=== PATIENT | male | born 1940 | race Caucasian/White ===

== ENCOUNTER 2019-11-04 16:01 | Emergency (ER) | payer MEDICARE, BC ==
--- NOTE | 2019-11-04 16:06 | ERPHSYRPT ---
- History of Present Illness Source: patient, EMS Exam Limitations: no limitations Timing/Duration: today Activities at Onset: none Severity of Dyspnea-Max: moderate Severity of Dyspnea-Current: moderate Possible Cause: occasional episodes Modifying Factors: Improves With: activity, exertion Associated Symptoms: No chest pain/discomfort, No hemoptysis, No calf pain, No lightheadedness, No painful breathing, No productive cough <SLY DURAN - Last Filed: 11/04/19 19:01> <LENORE MORAN - Last Filed: 11/04/19 21:05> - History of Present Illness Time Seen by Provider: 11/04/19 16:06 Physician History: This is a 78-year-old white male has a history of type 2 diabetes, hypertension , coronary artery disease, and COPD. Patient underwent a left knee surgery in [place]. This was performed 4 days ago. Patient and his family contacted EMS service because of complaints of exertional shortness of air. Patient denies chest pain. Patient has low oxygen saturation in the 80 to 81% on room air. Patient is only been on aspirin. He has not been on any anticoagulation therapy per his report. He is blood pressure in route was 129 over 60s with heart rate in the 90s. His respiratory rate was between 20 and 24. On 4 L of oxygen nasal cannula his patient is 96%. 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 and it is Dr. House (SLY DURAN) Allergies/Adverse Reactions: No Known Drug Allergies Allergy (Unverified 11/04/19 16:12) Home Medications: Albuterol 17 gm IH QID PRN 11/04/19 [History] Aspirin 325 mg PO DAILY 11/04/19 [History] Docusate Sodium [Colace] 100 mg PO BID 11/04/19 [History] Hydrocodone Bit/Acetaminophen [[place] 10-325 Tablet] 1 - 2 tab PO Q4H PRN [History] Lisinopril 10 mg [Zestril 10 MG] 5 mg PO EVENING MEAL 11/04/19 [History] Lisinopril 10 mg [Zestril 10 MG] 10 mg PO DAILY 11/04/19 [History] Metformin HCl 500 mg [Glucophage 500 MG] 1,000 mg PO BIDWM 11/04/19 [ History] Metoprolol Tartrate 25 mg [Lopressor 25MG Tab] 25 mg PO BID 11/04/19 [ History] Nitroglycerin 0.4 mg Tablet [Nitrostat 0.4 MG Tablet] 0.4 mg SL Q5MIN PRN MR X 3 PRN 11/04/19 [History] Ondansetron ODT 4 MG [Zofran Odt 4 mg] 4 mg PO Q6H PRN 11/04/19 [History] Simvastatin 20Mg [Zocor 20Mg] 40 mg PO QPM 11/04/19 [History] Travel Risk - International Travel Have you traveled outside of the country in past 3 weeks: No - Coronavirus Screening Are you exhibiting any of the following symptoms?: Yes Symptoms: Shortness of Breath Close contact with a COVID-19 positive Pt in past 14-21 Days: No <SLY DURAN - Last Filed: 11/04/19 19:01> - Review of Systems Constitutional: No Symptoms Eyes: No Symptoms Ears, Nose, & Throat: No Symptoms Respiratory: Dyspnea on Exertion (ABREU) Cardiac: No Symptoms Abdominal/Gastrointestinal: No Symptoms Genitourinary Symptoms: No Symptoms Musculoskeletal: No Symptoms Skin: No Symptoms Neurological: No Symptoms Psychological: No Symptoms Endocrine: No Symptoms Hematologic/Lymphatic: No Symptoms Immunological/Allergic: No Symptoms All Other Systems: Reviewed and Negative <SLY DURAN - Last Filed: 11/04/19 19:01> - Past Medical History Neurological History: No Pertinent History ENT History: No Pertinent History Cardiac History: Coronary Artery Disease, High Cholesterol, Hypertension Respiratory History: COPD Endocrine Medical History: Diabetes Type II Musculoskeletal History: Arthritis, Osteoarthritis GI Medical History: No Pertinent History History: No Pertinent History Psycho-Social History: No Pertinent History Male Reproductive Disorders: No Pertinent History Other Medical History: Lumbar fusion in 1998 - Past Surgical History Past Surgical History: Yes Neuro Surgical History: No Pertinent History Cardiac: No Pertinent History Respiratory: No Pertinent History Gastrointestinal: No Pertinent History Genitourinary: No Pertinent History Musculoskeletal: No Pertinent History Male Surgical History: No Pertinent History - Social History Exposure to second hand smoke: No Patient Lives Alone: No <SLY DURAN - Last Filed: 11/04/19 19:01> - Physical Exam General Appearance: no apparent distress, alert, anxiety, obese Eye Exam: PERRL/EOMI, eyes nml inspection Ears, Nose, Throat Exam: hearing grossly normal, normal ENT inspection, normal pharynx Neck Exam: normal inspection, non-tender, supple, full range of motion Respiratory Exam: normal breath sounds <SLY DURAN - Last Filed: 11/04/19 19:01> - Physical Exam Respiratory Exam: normal breath sounds, lungs clear Cardiovascular/Chest Exam: normal heart sounds, regular rate/rhythm Abdominal/Gastrointestinal Exam: soft, No tenderness, No distention Rectal Exam: deferred Extremity Exam: non-tender, normal range of motion, normal inspection Peripheral Pulses Exam: carotid (R): 2+, carotid (L): 2+, femoral (R): 2+, femoral (L): 2+, dorsalis-pedis (R): 2+, dorsalis-pedis (L): 2+ Neurologic Exam: alert, oriented x 3, cooperative, 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 tested, normal mood/affect Skin Exam: normal color SpO2 Interpretation: hypoxic <LENORE MORAN - Last Filed: 11/04/19 21:05> - Nursing Vital Signs Nursing Vital Signs: Initial Vital Signs Temperature 98.6 F 11/04/19 16:01 Pulse Rate 89 11/04/19 16:01 Respiratory Rate 16 11/04/19 16:01 Blood Pressure 117/63 11/04/19 16:01 O2 Sat by Pulse Oximetry 78 L 11/04/19 16:01 Pain Scale Pain Intensity 0 - Course Nursing assessment & vital signs reviewed: Yes EKG Interpreted by Me: Sinus Rhythm, Non-specific ST Changes, Other (IVCD) - CT Exams Chest CT Interpretation: Tele-radiologist Report, No PE, Other (atelectasi) <LENORE MORAN - Last Filed: 11/04/19 21:05> Ordered Tests: Active Orders 24 hr Category Date Time Status [place] STAT Care 11/04/19 16:07 Active EKG-ER Only STAT Care 11/04/19 16:07 Active EKG-ER Only STAT Care 11/04/19 17:27 Active IV Insertion STAT Care 11/04/19 16:07 Active Pulse Oximetry (ED) STAT Care 11/04/19 16:07 Active CHEST 1 VIEW (PORTABLE) Stat Exams 11/04/19 16:07 Completed CHEST WITH CONTRAST [CT] Stat Exams 11/04/19 18:45 Completed BMP Stat Lab 11/04/19 18:57 Completed CBC W DIFF Stat Lab 11/04/19 16:07 Completed CMP Stat Lab 11/04/19 16:10 Completed D-DIMER QUANTITATIVE Stat Lab 11/04/19 16:10 Completed NT PRO BNP Stat Lab 11/04/19 16:10 Completed PROTIME WITH INR Stat Lab 11/04/19 16:10 Completed TROPONIN Q3H Lab 11/04/19 16:10 Completed TROPONIN Q3H Lab 11/04/19 18:57 Completed TROPONIN Q3H Lab 11/04/19 22:15 Ordered TROPONIN Q3H Lab 11/05/19 01:15 Ordered TROPONIN Q3H Lab 11/05/19 04:15 Ordered Medication Summary Discontinued Medications Generic Name Dose Route Start Last Admin Trade Name Francisco PRN Reason Stop Dose Admin Sodium Chloride 500 mls @ 500 mls/hr 11/04/19 17:16 11/04/19 19:28 Sodium Chloride 0.9% 500 Ml IV 11/04/19 18:15 Infused .Q1H ONE Infusion Sodium Chloride Confirm 11/04/19 17:38 Sodium Chloride 0.9% 1000 Ml Administered 11/04/19 17:39 Dose 1,000 mls @ ud .ROUTE .STK-MED ONE Sodium Chloride Confirm 11/04/19 17:42 Sodium Chloride 0.9% 500 Ml Administered 11/04/19 17:43 Dose 500 mls @ ud IV .STK-MED ONE Lab/Rad Data: Laboratory Result Diagrams 11/04/19 16:07 11/04/19 18:57 Laboratory Results 11/04/19 11/04/19 11/04/19 Range/Units 18:57 18:57 16:10 WBC (4.0-10.5) K/mm3 RBC (4.1-5.6) M/mm3 Hgb (12.5-18.0) gm/dl Hct (42-50) % MCV (78-100) fl MCH (26-32) pg MCHC (32-36) g/dl RDW (11.5-14.0) % Plt Count (150-450) K/mm3 MPV (7.5-11.0) fl Gran % (36.0-66.0) % Eos # (Auto) (0-0.5) Absolute Lymphs (auto) (1.0-4.6) Absolute Monos (auto) (0.0-1.3) Lymphocytes % (24.0-44.0) % Monocytes % (0.0-12.0) % Eosinophils % (0.00-5.0) % Basophils % (0.0-0.4) % Absolute Granulocytes (1.4-6.9) Basophils # (0-0.4) PT (8.83-12.87) SECONDS INR (0.8-3.0) D-Dimer (215-500) ng/mL Sodium 134 L (137-145) mmol/L Potassium 4.7 (3.5-5.1) mmol/L Chloride 95 L (98-107) mmol/L Carbon Dioxide 32 H (22-30) mmol/L Anion Gap 12.1 (5-15) MEQ/L BUN 31 H (9-20) mg/dL Creatinine 1.34 H (0.66-1.25) mg/dL Estimated GFR 54.8 ML/MIN Glucose 171 H (74-106) mg/dL Calcium 8.2 L (8.4-10.2) mg/dL Total Bilirubin (0.2-1.3) mg/dL AST (17-59) U/L ALT (0-50) U/L Alkaline Phosphatase (38-126) U/L Troponin I 0.078 H* 0.097 H* (0.000-0.034) ng/mL NT-Pro-B Natriuret Pep (0-1800) pg/mL Serum Total Protein (6.3-8.2) g/dL Albumin (3.5-5.0) g/dL 11/04/19 11/04/19 11/04/19 Range/Units 16:10 16:10 16:07 WBC 9.4 (4.0-10.5) K/mm3 RBC 5.15 (4.1-5.6) M/mm3 Hgb 14.0 (12.5-18.0) gm/dl Hct 42.1 (42-50) % MCV 81.7 (78-100) fl MCH 27.2 (26-32) pg MCHC 33.3 (32-36) g/dl RDW 15.4 H (11.5-14.0) % Plt Count 274 (150-450) K/mm3 MPV 9.7 (7.5-11.0) fl Gran % 77.5 H (36.0-66.0) % Eos # (Auto) 0.07 (0-0.5) Absolute Lymphs (auto) 0.80 L (1.0-4.6) Absolute Monos (auto) 1.22 (0.0-1.3) Lymphocytes % 8.5 L (24.0-44.0) % Monocytes % 13.0 H (0.0-12.0) % Eosinophils % 0.7 (0.00-5.0) % Basophils % 0.3 (0.0-0.4) % Absolute Granulocytes 7.25 H (1.4-6.9) Basophils # 0.03 (0-0.4) PT 12.6 (8.83-12.87) SECONDS INR 1.11 (0.8-3.0) D-Dimer 1723 H* (215-500) ng/mL Sodium 134 L (137-145) mmol/L Potassium 4.6 (3.5-5.1) mmol/L Chloride 94 L (98-107) mmol/L Carbon Dioxide 33 H (22-30) mmol/L Anion Gap 12.0 (5-15) MEQ/L BUN 32 H (9-20) mg/dL Creatinine 1.49 H (0.66-1.25) mg/dL Estimated GFR 48.5 ML/MIN Glucose 216 H (74-106) mg/dL Calcium 8.4 (8.4-10.2) mg/dL Total Bilirubin 0.60 (0.2-1.3) mg/dL AST 24 (17-59) U/L ALT 15 (0-50) U/L Alkaline Phosphatase 52 (38-126) U/L Troponin I (0.000-0.034) ng/mL NT-Pro-B Natriuret Pep 2430 H (0-1800) pg/mL Serum Total Protein 6.5 (6.3-8.2) g/dL Albumin 3.4 L (3.5-5.0) g/dL - Progress Air Movement: good Blood Culture(s) Obtained: No Antibiotics given: No <SLY DURAN - Last Filed: 11/04/19 19:01> - Progress Progress: improved, re-examined Air Movement: good Discussed with Dr.: Other (Dr. Tobias and Dr. Cowan) Will see patient in: hospital (observation) Counseled pt/family regarding: lab results, diagnosis, need for follow-up, rad results <LENORE MORAN - Last Filed: 11/04/19 21:05> - Progress Progress Note: 11/04/19 18:24 Medical decision making: This patient's GFR is slightly under the level of 50. He is at 48.5. We will rehydrate him. We will obtain a repeat BMP and then perform the CTA of the chest. Final disposition will be determined by Dr. Moran upon return of the BMP and the results of the CTA of the chest 11/04/19 18:43 Reviewed the patient history, condition, EKG, laboratory reports and radiographic pending studies with Dr. Moran. He accepts the patient in transfer of care at shift change. He will make the final disposition for this patient. (SLY DURAN) pt received at change of shift from Dr. Duran after discussion of pending studies and plan to rule out PE and then discuss with pts cardio team at for potential transfer for elevated trops. - and also intro to pt. 11/04/19 19:59 11/04/19 20:01 11/04/19 21:[address] Tobias covering cardio who will follow at [facility]- and Dr. Cowan who will admit and pt wishes this. (LENORE MORAN) <SLY DURAN - Last Filed: 11/04/19 19:01> - Departure Departure Disposition: Transfer Critical Care Time: No <LENORE MORAN - Last Filed: 11/04/19 21:05> - Departure Clinical Impression: NSTEMI (non-ST elevated myocardial infarction), Elevated d-dimer, COPD ( chronic obstructive pulmonary disease) Condition: Good Referrals: MASOUD LYNN MD [Primary Care Provider] - Instructions: Chronic Obstructive Pulmonary Disease
[2019-11-04 16:17] LABS: Absolute Neutrophil Ct (ANC) 7.25 (1.4-6.9); BASOPHIL % 0.3 % (0.0-0.4); Basophil (Absolute #) 0.03 (0-0.4); Eosinophil % 0.7 % (0.00-5.0); Eosinophil (Absolute #) 0.07 (0-0.5); Hematocrit 42.1 % (42-50); Lymphocytes % 8.5 % (24.0-44.0); Mean Cell Volume 81.7 fl (78-100); Mean Corpuscular Hemoglobin 27.2 pg (26-32); Mean Corpuscular Hgb Concent. 33.3 g/dl (32-36); Mean Platelet Volume 9.7 fl (7.5-11.0); Monocyte (Absolute #) 1.22 (0.0-1.3); Neutrophil % 77.5 % (36.0-66.0); Platelet Count 274 K/mm3 (150-450); Red Blood Count 5.15 M/mm3 (4.1-5.6); Red Cell Distribution Width 15.4 % (11.5-14.0); White Blood Count 9.4 K/mm3 (4.0-10.5)
[2019-11-04 16:28] LABS: INR 1.11 (0.8-3.0); PROTIME 12.6 SECONDS (8.83-12.87)
[2019-11-04 16:41] LABS: ALBUMIN 3.4 g/dL (3.5-5.0); BILIRUBIN,TOTAL 0.6 mg/dL (0.2-1.3); Calcium 8.4 mg/dL (8.4-10.2); Creatinine 1 1.49 mg/dL (0.66-1.25); Potassium 4.6 mmol/L (3.5-5.1); Total Protein 6.5 g/dL (6.3-8.2)
[2019-11-04] MEDS ORDERED: Sodium Chloride 0.9% 500 ML 500 ML IV ONE ×2 (17:16→17:42)
[2019-11-04] MEDS ORDERED: Sodium Chloride 0.9% 1000 ML 1,000 ML ONE (17:38)
[2019-11-04 19:14] LABS: ANION GAP 12.1 MEQ/L (5-15); Calcium 8.2 mg/dL (8.4-10.2); Creatinine 1 1.34 mg/dL (0.66-1.25); Potassium 4.7 mmol/L (3.5-5.1)
--- NOTE | 2019-11-04 20:46 | XRAY ---
Indication: Short of breath. Low oxygenation. Elevated d-dimer. History of COPD. Multiple contiguous axial images obtained through the chest using 80 cc Isovue 370 contrast and PE protocol. Comparison: CT chest without contrast September 02, 2016. There is good opacification of the pulmonary arteries to include the lobar and segmental branches. No filling defect or pulmonary embolus. Heart is not enlarged. Aorta remains mildly calcified without aneurysm/dissection. Stable small right hilar calcified nodes. No pathologic mediastinal/hilar lymphadenopathy. Esophagus again demonstrates mild circumferential wall thickening, possible esophagitis. Lungs again demonstrates bibasilar atelectasis/scarring and a few right lung calcified/noncalcified granulomas. No infiltrate or effusion. Bony thorax again demonstrates mild degenerative changes throughout the spine. Limited upper abdomen again demonstrates mild fatty liver and calcified splenic granulomas. New 3.1 cm incompletely visualized left mid renal exophytic cyst not previously included in [id number]. Impression: 1. Negative pulmonary embolus. No acute cardiopulmonary abnormalities. 2. Continued esophageal wall thickening. Rule out esophagitis. 3. Incidental bibasilar atelectasis/scarring, fatty liver, left renal cyst, and evidence for old granulomatous disease. Comment: Preliminary interpretation was made by C. No critical discrepancy.
--- NOTE | 2019-11-04 20:48 | XRAY ---
Indication: Short of breath. Comparison: None Portable chest is clear. Heart is not enlarged for AP portable technique. Bony thorax intact. Impression: Nonacute chest.
[2019-11-04 23:00] VITALS: PULSE 103
[2019-11-04 23:08] VITALS: BP 142/65; O2SAT 89
== END 2019-11-05 00:05 | disposition short-term general hospital (02) ==
LOC: ED 16:01
DX: I21.3 ST elevation (STEMI) myocardial infarction of unspecified site (principal); R79.89 Other specified abnormal findings of blood chemistry; J44.9 Chronic obstructive pulmonary disease, unspecified; E11.9 Type 2 diabetes mellitus without complications; I10 Essential (primary) hypertension; I25.10 Atherosclerotic heart disease of native coronary artery without angina pectoris; Z79.4 Long term (current) use of insulin; E78.00 Pure hypercholesterolemia, unspecified
CPT/HCPCS: 36000; 36415; 71045; 71260; 80048; 80053; 83880; 84484; 85025; 85379; 85610; 93005; 96360; 96361; 99285

== ENCOUNTER 2020-07-25 16:35 | Emergency (ER) | payer MEDICARE, BC ==
[2020-07-25] MEDS ORDERED: BACIGUENT PACKET TP ONE (16:41)
[2020-07-25] MEDS ORDERED: XYLOCAINE 1% HCL 20 ML MDV IJ ONE (16:41)
[2020-07-25] MEDS ORDERED: XYLOCAINE 1% HCL 20 ML MDV ONE (16:42)
[2020-07-25] MEDS ORDERED: BACIGUENT PACKET ONE (16:42)
[2020-07-25 17:14] VITALS: BP 115/95; PULSE 76
[2020-07-25 17:16] VITALS: O2SAT 93
--- NOTE | 2020-07-25 17:16 | ERPHSYRPT ---
- History of Present Illness Time Seen by Provider: 07/25/20 16:40 Source: patient Exam Limitations: no limitations Patient Subjective Stated Complaint: Laceration Triage Nursing Assessment: Patient ambulated back to ED and transferred self to bed. Patient A+O X3. Patient's skin pink, warm and dry. Patient states he was using his drill and accidently hit his finger causing a laceration to left hand, 3rd digit. Laceration noted to left hand 3rd digit actively bleeding. Patient complains of intermittent pain 2/10. Physician History: This is a 79-year-old right-handed white male who is diabetic and a history of hypertension as well as some COPD and presents with a laceration to his left middle finger distal aspect. Patient states that he believes his tetanus status is up-to-date and does not want a tetanus injection at this time. He will check with his primary care doctor's office tomorrow. Patient was using a drill bit on a small piece of clean, new sheet metal. There was a clean cut to the left middle finger. Timing/Duration: today Quality: painful Severity: mild Location: hands (Left hand distal middle finger) Associated Symptoms: denies symptoms Allergies/Adverse Reactions: No Known Drug Allergies Allergy (Verified 07/25/20 16:39) Home Medications: Albuterol 17 gm IH QID PRN 11/04/19 [History] Aspirin 325 mg PO DAILY 11/04/19 [History] Docusate Sodium [Colace] 100 mg PO BID 11/04/19 [History] Hydrocodone Bit/Acetaminophen [[place] 10-325 Tablet] 1 - 2 tab PO Q4H PRN 11/04/19 [History] Lisinopril 10 mg [Zestril 10 MG] 5 mg PO EVENING MEAL 11/04/19 [History] Lisinopril 10 mg [Zestril 10 MG] 10 mg PO DAILY 11/04/19 [History] Metformin HCl 500 mg [Glucophage 500 MG] 1,000 mg PO BIDWM 11/04/19 [History] Metoprolol Tartrate 25 mg [Lopressor 25MG Tab] 25 mg PO BID 11/04/19 [History] Nitroglycerin 0.4 mg Tablet [Nitrostat 0.4 MG Tablet] 0.4 mg SL Q5MIN PRN MR X 3 PRN 11/04/19 [History] Ondansetron ODT 4 MG [Zofran Odt 4 mg] 4 mg PO Q6H PRN 11/04/19 [History] Simvastatin 20Mg [Zocor 20Mg] 40 mg PO QPM 11/04/19 [History] Hx Influenza Vaccination/Date Given: Yes Hx Pneumococcal Vaccination/Date Given: No Immunizations Up to Date: Yes Travel Risk - International Travel Have you traveled outside of the country in past 3 weeks: No - Coronavirus Screening Are you exhibiting any of the following symptoms?: No Close contact with a COVID-19 positive Pt in past 14-21 Days: No - Review of Systems Constitutional: No Symptoms Eyes: No Symptoms Ears, Nose, & Throat: No Symptoms Respiratory: No Symptoms Cardiac: No Symptoms Abdominal/Gastrointestinal: No Symptoms Genitourinary Symptoms: No Symptoms Musculoskeletal: Injury (Left hand distal middle finger) Skin: Other (Laceration left hand distal middle finger) Neurological: No Symptoms Psychological: No Symptoms Endocrine: No Symptoms Hematologic/Lymphatic: No Symptoms Immunological/Allergic: No Symptoms All Other Systems: Reviewed and Negative - Past Medical History Neurological History: No Pertinent History ENT History: No Pertinent History Cardiac History: Other Respiratory History: COPD, Other Endocrine Medical History: Diabetes Type II Musculoskeletal History: Osteoarthritis GI Medical History: No Pertinent History History: No Pertinent History Psycho-Social History: No Pertinent History Male Reproductive Disorders: No Pertinent History Other Medical History: 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 Recent stress test negative. - Past Surgical History Past Surgical History: Yes Neuro Surgical History: No Pertinent History Cardiac: No Pertinent History Respiratory: No Pertinent History Gastrointestinal: No Pertinent History Genitourinary: No Pertinent History Musculoskeletal: No Pertinent History Male Surgical History: No Pertinent History Other Surgical History: left knee 10/31/19 and lumbar fusion - Social History Smoking Status: Never smoker Exposure to second hand smoke: No Drug Use: none Patient Lives Alone: No - Nursing Vital Signs Nursing Vital Signs: Initial Vital Signs Temperature 98.0 F 07/25/20 16:40 Pulse Rate 81 07/25/20 16:40 Respiratory Rate 18 07/25/20 16:40 Blood Pressure 185/82 07/25/20 16:40 O2 Sat by Pulse Oximetry 93 L 03/04/21 16:40 Pain Scale Pain Intensity 2 - Physical Exam General Appearance: no apparent distress, alert Eye Exam: PERRL/EOMI, eyes nml inspection Ears, Nose, Throat Exam: normal ENT inspection, moist mucous membranes Neck Exam: normal inspection, non-tender, supple, full range of motion Respiratory Exam: airway intact, No chest tenderness, No respiratory distress Gastrointestinal/Abdomen Exam: No tenderness Rectal Exam: not done Back Exam: normal inspection, normal range of motion, No CVA tenderness, No vertebral tenderness Extremity Exam: normal range of motion, lacerations (Approximately 4 cm laceration distal middle finger of left hand. Patient is neurovascularly intact. Patient's tendons are intact. 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 II-XII nml as tested, normal mood/affect, nml cerebellar function, nml station & gait, sensation nml Skin Exam: normal color, warm, dry, laceration Lymphatic Exam: No adenopathy SpO2 Interpretation: borderline oxygenation SpO2: 93 O2 Delivery: Room Air Procedures - Laceration/Wound Repair Left Upper Distal Finger Time of Procedure: 17:15 Wound Location: Left Wound Length (cm): 4 Wound's Depth, Shape: superficial, linear Wound Explored: clean (In bloodless field, to base, no foreign body noted) Irrigated: Yes Hibiclens Prep: Yes Anesthesia: 1% Lidocaine Volume Anesthetic (ccs): 3 Wound Repaired With: sutures Suture Size/Type: 4-0, nylon Number of Sutures: 6 Layer Closure?: No Sterile Dressing Applied?: Yes Progress: 07/25/20 17:16 No complications the patient procedure well. The laceration repair site was cleaned and dried. Bacitracin ointment was applied. Pressure dressing was also applied. - Course Nursing assessment & vital signs reviewed: Yes Ordered Tests: Active Orders 24 hr Category Date Time Status Wound Care STAT Care 07/25/20 16:41 Active Medication Summary Discontinued Medications Generic Name Dose Route Start Last Admin Trade Name Freq PRN Reason Stop Dose Admin Bacitracin Zinc 0.9 gm 07/25/20 16:41 07/25/20 16:45 Baciguent Packet TP 07/25/20 16:42 0.9 gm STAT ONE Administration Bacitracin Zinc Confirm 07/25/20 16:42 Baciguent Packet Administered 07/25/20 16:43 Dose 1 gm .ROUTE .STK-MED ONE Lidocaine HCl 5 ml 07/25/20 16:41 07/25/20 16:46 Xylocaine 1% Hcl 20 Ml Mdv IJ 07/25/20 16:42 5 ml STAT ONE Administration Lidocaine HCl Confirm 07/25/20 16:42 Xylocaine 1% Hcl 20 Ml Mdv Administered 07/25/20 16:43 Dose 5 ml .ROUTE .STK-MED ONE - Progress Progress: improved Counseled pt/family regarding: diagnosis, need for follow-up - Departure Departure Disposition: Home Clinical Impression: Finger laceration Condition: Stable Critical Care Time: No Referrals: MASOUD LYNN MD [Primary Care Provider] - Additional Instructions: Tylenol and ibuprofen for pain control. Keep the current dressing in place until tomorrow evening. After that time you may remove the dressing wash the area of soap and water. Blot dry or use a hairdryer to dry the repair site. Reapply antibiotic ointment once a day followed by a bandage. Suture removal in 8 to 10 days.
== END 2020-07-25 17:22 | disposition home or self-care (01) ==
LOC: ED 16:35
DX: S61.213A Laceration without foreign body of left middle finger without damage to nail, initial encounter (principal); W31.89XA Contact with other specified machinery, initial encounter
CPT/HCPCS: 12002; 96372; 99284; A9270-GY

== ENCOUNTER 2023-11-28 13:24 | Emergency (ER) | payer MEDICARE, BC ==
[2023-11-28 13:35] VITALS: RESP 22; TEMP 97.8
[2023-11-28] MEDS ORDERED: XYLOCAINE 1% HCL 20 ML MDV ONE ×2 (13:39→15:32)
--- NOTE | 2023-11-28 14:15 | ERPHSYRPT ---
- History of Present Illness Time Seen by Provider: 11/28/23 14:10 Source: patient, family Exam Limitations: no limitations Patient Subjective Stated Complaint: pt states "I got my fingers with a cutting wheel." Triage Nursing Assessment: PT presented alert and oriented X 3, skin pwd. Pt ambulates with an upright steady gait. PT has lacerationd noted to second and third digit close to 1st knuckle. Physician History: pt states "I got my fingers with a cutting wheel." Patient is 82-year-old male was working on some metal with metal cutting will and he tried to work in the tight area where he got snapped by cutting wheel on his left second and third fingers has developed laceration approximately 1 cm in size on the dorsum part of the finger. Patient is also on Xarelto for anticoagulation. Occurred: just prior to arrival Method of Injury: incised Quality: constant Severity of Pain-Max: moderate Severity of Pain-Current: moderate Extremities Pain Location: 2nd finger: left, 3rd finger: left Modifying Factors: Improves With: nothing Associated Symptoms: none Allergies/Adverse Reactions: oxycodone Adverse Reaction (Severe, Verified 11/28/23 13:35) hyperactivity Home Medications: Albuterol 17 gm IH QID PRN 11/04/19 [History] Aspirin 325 mg PO DAILY 11/04/19 [History] Docusate Sodium [Colace] 100 mg PO BID 11/04/19 [History] Hydrocodone/Acetaminophen [Garfield 10-325 Tablet] 1 - 2 tab PO Q4H PRN 11/04/19 [History] Lisinopril 10 mg [Zestril 10 MG] 5 mg PO EVENING MEAL 11/04/19 [History] Lisinopril 10 mg [Zestril 10 MG] 10 mg PO DAILY 11/04/19 [History] Metformin HCl 500 mg [Glucophage 500 MG] 1,000 mg PO BIDWM 11/04/19 [History] Metoprolol Tartrate 25 mg [Lopressor 25MG Tab] 25 mg PO BID 11/04/19 [History] Nitroglycerin 0.4 mg Tablet [Nitrostat 0.4 MG Tablet] 0.4 mg SL Q5MIN PRN MR X 3 PRN 11/04/19 [History] Ondansetron ODT 4 MG [Zofran Odt 4 mg] 4 mg PO Q6H PRN 11/04/19 [History] Simvastatin 20Mg [Zocor 20Mg] 40 mg PO QPM 11/04/19 [History] Hx Tetanus, Diphtheria Vaccination/Date Given: Yes Hx Influenza Vaccination/Date Given: Yes Hx Pneumococcal Vaccination/Date Given: No Immunizations Up to Date: No Travel Risk - International Travel Have you traveled outside of the country in past 3 weeks: No - Emerging Infectious Disease Are you exhibiting symptoms associated with any current EIDs: No - Review of Systems Constitutional: No Symptoms Eyes: No Symptoms Ears, Nose, & Throat: No Symptoms Respiratory: No Symptoms Cardiac: No Symptoms Abdominal/Gastrointestinal: No Symptoms Genitourinary Symptoms: No Symptoms Musculoskeletal: Other (finger injury) - Past Medical History Neurological History: No Pertinent History ENT History: No Pertinent History Cardiac History: Other Respiratory History: COPD, Other Endocrine Medical History: Diabetes Type II Musculoskeletal History: Osteoarthritis GI Medical History: No Pertinent History History: No Pertinent History Psycho-Social History: No Pertinent History Male Reproductive Disorders: No Pertinent History 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 Recent stress test negative. - Past Surgical History Past Surgical History: Yes Neuro Surgical History: No Pertinent History Cardiac: No Pertinent History Respiratory: No Pertinent History Gastrointestinal: No Pertinent History Genitourinary: No Pertinent History Musculoskeletal: No Pertinent History Male Surgical History: No Pertinent History Other Surgical History: left knee 10/31/19 and lumbar fusion - Social History Smoking Status: Never smoker Exposure to second hand smoke: No Drug Use: none Patient Lives Alone: No - Social Determinants of Health Will the patient participate in the screening: Declined to provide - Nursing Vital Signs Nursing Vital Signs: Initial Vital Signs Temperature 97.8 F 11/28/23 13:30 Pulse Rate 77 11/28/23 13:30 Respiratory Rate 22 11/28/23 13:30 Blood Pressure 150/68 11/28/23 13:30 O2 Sat by Pulse Oximetry 91 L 11/28/23 13:30 Pain Scale Pain Intensity 0 - Physical Exam General Appearance: no apparent distress Eyes, Ears, Nose, Throat Exam: normal ENT inspection Neck Exam: normal inspection Cardiovascular/Respiratory Exam: chest non-tender Abdominal Exam: non-tender Back Exam: normal inspection Shoulder Exam: normal inspection Elbow/Forearm Exam: normal inspection Wrist Exam: normal inspection Hand Exam: laceration (2nd and 3rd left finger), soft tissue tenderness Neuro/Tendon Exam: normal sensation, normal motor functions, normal tendon functions Mental Status Exam: alert, oriented x 3 Skin Exam: normal color SpO2 Interpretation: normal SpO2: 91 O2 Delivery: Room Air Procedures - Laceration/Wound Repair Left Finger Time of Procedure: 15:11 Wound Location: Left (2nd and 3rd finger) Wound Length (cm): 1.5 (1.5 cms laceration on dorsum of 2nd and 3rd finger dorsum area) Wound's Depth, Shape: superficial Wound Explored: clean Irrigated: Yes Hibiclens Prep: Yes Anesthesia: local, 1% lidocaine w/ Epi Volume Anesthetic (ccs): 5 Wound Debrided: minimal Wound Repaired With: sutures (5 sutures in 3rd finger, 3 sutures in 2nd finger) Suture Size/Type: 4-0, nylon Number of Sutures: 5 Layer Closure?: No Sterile Dressing Applied?: Yes - Course Nursing assessment & vital signs reviewed: Yes - Radiology Exams Hand X-ray Interpretation: Interpreted by me, Reviewed by me, Teleradiologist Report, No Fracture Ordered Tests: Active Orders 24 hr Category Date Time Status HAND (MINIMUM 3 VIEWS) Stat Exams 11/28/23 13:57 Completed Medication Summary Discontinued Medications Generic Name Dose Route Start Last Admin Trade Name Freq PRN Reason Stop Dose Admin Bacitracin Zinc Confirm 11/28/23 15:06 Bacitracin Packet 1 Each Pckt Administered 11/28/23 15:07 Dose 2 each .ROUTE .STK-MED ONE Ceftriaxone Sodium 1,000 mg 11/28/23 15:17 Ceftriaxone Sodium 1000 Mg Inj Vial IM 11/28/23 15:18 STAT ONE Diphtheria/Tetanus/Acell Pertussis 0.5 ml 11/28/23 15:16 Tdap --Diph,Pertuss(Acell),Tet Vac/Pf 0.5 Ml Vial IM 11/28/23 15:17 .ONCE ONE Lidocaine HCl Confirm 11/28/23 13:39 Lidocaine Hcl 1% 20 Ml Mdv 20 Ml Ml Administered 11/28/23 13:40 Dose 1 ml .ROUTE .STK-MED ONE - Progress Progress: improved Counseled pt/family regarding: diagnosis, need for follow-up (wound check in 3 days), rad results - Departure Departure Disposition: Home Clinical Impression: Laceration of finger of left hand Qualifiers: Encounter type: initial encounter Finger: index finger Damage to nail status: without damage Foreign body presence: without foreign body Qualified Code(s): S61.211A - Laceration without foreign body of left index finger without damage to nail, initial encounter Laceration of finger Qualifiers: Encounter type: initial encounter Finger: middle finger Damage to nail status: without damage Foreign body presence: without foreign body Laterality: left Esa lified Code(s): S61.213A - Laceration without foreign body of left middle finger without damage to nail, initial encounter Condition: Stable Critical Care Time: No Referrals: MASOUD LYNN MD [Primary Care Provider] - Follow up/PCP as directed Instructions: Wound Care (DC), Laceration Repair With Stitches (DC) Additional Instructions: Discharge/Care Plan JAYLA CARRILLO was seen on 11/28/23 in the Emergency Room. The patient was counseled regarding Diagnosis,Lab results, Imaging studies, need for follow up and when to return to the Emergency Room. Prescriptions given: Discharge Note I have spoken with the patient and/or caregivers. I have explained the patient's condition, diagnosis and treatment plan based on the information available to me at this time. I have answered the patient's and/or caregiver's questions and addressed any concerns. The patient and/or caregivers have as good understanding of the patient's diagnosis, condition and treatment plan as can be expected at this point. The vital signs have been stable. The patient's condition is stable and appropriate for discharge from the emergency department. The patient will pursue further outpatient evaluation with the primary care physician or other designated or consulting physician as outlined in the discharge instructions. The patient and/or caregivers are agreeable to this plan of care and follow-up instructions have been explained in detail. The patient and/or caregivers have received these instruction. The patient/and or caregivers are aware that any significant change in condition or worsening of symptoms should prompt an immediate return to this or the closest emergency department or call 911. JAYLA CARRILLO was seen on 11/28/23 n the Emergency Room. At that time you were treated for an emergent condition, during your visit Laboratory, Radiology and/or other procedures may have been ordered. It is very important that you follow-up with your Primary Care Physician MASOUD LYNN within the next 24- 48 hours to review your Emergency Room visit and the final results of testing that was ordered. Some test results such as Urine Cultures, Blood Cultures, and other cultures if ordered will not be finalized for 24-48 hours. If you do not have a Primary Care Provider please call the medical records department at [phone] to obtain a copy of your results or you may sign into our patient portal to obtain these results by visiting us @ [email or web address] and completing the following steps: 1. Click on the Patient Portal link 2. Click the Patient Self Enrollment Link to complete the enrollment form and entering your 3. Once the enrollment form is completed you will receive an email with a temporary ID and password at the email address you provided. 4. Next choose a user name and password. Your user name must be at least 4 characters long and your password must be at least 4 characters long. 5. Choose a security question from the list and provide your answer to the question. If you already have signed into the Health Portal you may access your Health Care Information 14/12 by the following steps: 1. Login to our website @ [email or web address] 2. Enter your original user name and password. FAQS [facility] Portal is an online tool that contains your Lab Results, Radiology Reports, Visit History, Discharge Instructions and Health Summary Lab and Radiology Results will not be available for 72 hours on the portal. The Portal is a secure site, passwords are encryted and URLs are re-written so they cannot be copied and pasted. You and authorized family members are the only ones who can access your Portal. Also there is a timeout feature that protects your information if you leave the Portal page open. If you have technical difficulty please use the Contact Us link on the page this will allow you to submit any questions you have regarding the Portal or you may contact the Medical Record Department at [phone] ext [phone]. Prescriptions: Cefdinir 300 mg PO BID #15 cap
[2023-11-28 14:25] VITALS: BP 126/65; PULSE 71
--- NOTE | 2023-11-28 14:37 | XRAY ---
CLINICAL HISTORY: hand injury COMPARISON: None. TECHNIQUE: X-ray of left hand showing PA, lateral and oblique views FINDINGS: No definite acute bony injury is identified. Mild degenerative changes seen in the distal interphalangeal joints of first, second and fifth digits as evidenced by small marginal osteophytes. No bony erosions. No sclerotic or lytic bony lesions. Soft tissue prominence of mainly middle and ring fingers noted. IMPRESSION: 1. No definite acute bony abnormality/injury is identified. 2. Soft tissue prominence of mainly middle and ring fingers noted. 3. Clinical correlation is suggested. Disclaimer: "A subtle bone abnormality or fracture may not be readily apparent on x-rays, thus clinical correlation and further imaging including follow-up CT, MRI, or follow-up x-rays are advised as needed" Electronically Signed by: Teri Ulrich MD. (11/28/2023 14:32:27 EDT)
[2023-11-28] MEDS ORDERED: BACIGUENT PACKET ONE (15:06)
[2023-11-28 15:16] VITALS: O2SAT 91
[2023-11-28] MEDS ORDERED: Adacel Vial IM ONE (15:32)
[2023-11-28] MEDS ORDERED: Rocephin 1000 MG INJ ONE (15:32)
[2023-11-28] MEDS: Adacel Vial IM ONE (15:37)
[2023-11-28] MEDS: Rocephin 1000 MG INJ IM ONE (15:39)
== END 2023-11-28 15:52 | disposition home or self-care (01) ==
LOC: ED 13:24
DX: S61.211A Laceration without foreign body of left index finger without damage to nail, initial encounter (principal); S61.213A Laceration without foreign body of left middle finger without damage to nail, initial encounter; W27.8XXA Contact with other nonpowered hand tool, initial encounter; E11.9 Type 2 diabetes mellitus without complications; Z79.01 Long term (current) use of anticoagulants; Z79.84 Long term (current) use of oral hypoglycemic drugs; Z79.899 Other long term (current) drug therapy; Z23 Encounter for immunization
CPT/HCPCS: 12001; 73130; 90471; 90715; 96372; 99283; J0696; A9270-GY